=== PATIENT | female | born 1985 ===

== ENCOUNTER → 2024-10-18 08:00 | Outpatient (CLI) | payer OTHER, SELFPAY ==
--- NOTE | 2024-10-18 | DI.MRI.S_ITS ---
PROCEDURE: MR WRIST LT WO CON INDICATIONS: chronic wrist pain TECHNIQUE: Noncontrast coronal proton density fast spin echo and T2 fast spin echo with fat saturation; coronal 3-D gradient echo, axial T1 spin echo and T2 fast spin echo with fat saturation, sagittal T1 spin echo through the wrist. COMPARISON: None. FINDINGS: Image quality: Excellent. Bones: The bone marrow signal is normal. There is no evidence of acute fracture or carpal bone osteonecrosis. There is a type 1 lunate. Joints: There is no significant osteoarthritis. There is no significant fluid within the distal radioulnar joint, radiocarpal joint, or midcarpal space. Intrinsic Ligaments: The scapholunate and lunotriquetral intervals are normal. The intrinsic scapholunate and lunotriquetral ligaments are normal. Extrinsic Ligaments: The extrinsic ligaments are normal. Triangular Fibrocartilage Complex: The triangular fibrocartilage disc proper, distal dorsal and volar radioulnar ligaments, ulnar collateral ligament/meniscal homologue, ulnotriquetral, and ulnolunate ligaments are normal. Tendons: There is mild intermediate signal within the extensor carpi ulnaris tendon at the level of the fibro-osseous tunnel with a trace amount of fluid in the tendon sheath (7/17), and minimal overlying subcutaneous edema (9/5). The tendon is anatomic Ch[place] located within the fibro-osseous tunnel without subluxation or tearing. The flexor and extensor tendons are otherwise normal. Nerves: The median and ulnar nerves appear normal in size and signal. Other: No other acute abnormality. 1. IMPRESSION: Mild extensor carpi ulnaris tendinosis/tenosynovitis. This could be amenable to the ultrasound-guided corticosteroid tendon sheath injection for therapeutic relief. 2. No other acute MR abnormality of the wrist. Dictated by: Griffin Dennis M.D. on 10/20/2024 at 13:23 Approved by: Griffin Dennis M.D. on 10/20/2024 at 13:36
== END ==
PROVIDERS: Referring Provider Preventive Medicine Aerospace Medicine; Visit Provider Preventive Medicine Aerospace Medicine
DX: M25.532 Pain in left wrist (principal); M65.932 Unspecified synovitis and tenosynovitis, left forearm
CPT/HCPCS: 73221